=== PATIENT | male | born 1970 | race Caucasian/White ===

== ENCOUNTER 2017-02-11 13:43 | Emergency (ER) | payer OTHER ==
[~2017-02-11] VITALS: Ht 172.7 cm; Wt 85.0 kg
[2017-02-11 13:51] VITALS: TEMP 36.8; Ht 172.7 cm; Wt 85.0 kg
[2017-02-11] MEDS ORDERED: MoRPHine SULFATE 10 MG/ML CARP/VIAL IV STA (14:05)
[2017-02-11] MEDS ORDERED: CEFAZOLIN IV 1,000 MG in DEXTROSE 5% 50ML 50 ML IV STA (14:05)
[2017-02-11] MEDS ORDERED: BUPIVACAINE 0.5 % 5 MG/1 ML MPF 30ML VIAL INFIL STA (14:19)
[2017-02-11] MEDS ORDERED: XYLOCAINE 1%/SOD BICARB 20 ML VIAL INFIL STA (14:19)
[2017-02-11] MEDS ORDERED: DIPHTHERIA/TETANUS/PERTUSSIS 0.5 ML SYR/VIAL IM. ONE (14:30)
[2017-02-11] MEDS ORDERED: TETANUS IMMUNE GLOBULIN (HUMAN) 250 UNITS/ML SYR IM. ONE (14:30)
[2017-02-11 14:35] LABS: BASO % 0.4 %; BASO ABS # 0.03 K/uL (0-0.2); COMPLETE YES; EOS % 3.1 %; IG% 0.3 %; LYMPH % 22.9 %; LYMPH ABS # 1.79 K/uL (1.2-3.4); MEAN CELL VOLUME 87.6 fL (80-100); MEAN CORPUSCULAR HEMOGLOBIN 31.2 pg (25-34); MEAN CORPUSCULAR HGB CONC 35.6 g/dl (32-36); MEAN PLATELET VOLUME 11.2 fL (7.4-10.4); NEUT % 66.3 %; PLATELET COUNT 210 K/uL (130-400); RED BLOOD COUNT 4.91 M/uL (4.7-6.1); WHITE BLOOD COUNT 7.83 K/uL (4.8-10.8)
--- NOTE | 2017-02-11 14:55 | DIAGNOSTIC IMAGING REPORT ---
LEFT THUMB 3 VIEWS HISTORY: Left thumb foreign body COMPARISON: None. FINDINGS: There is a 3 cm metallic nail through the distal phalanx resulting in a fracture of the distal tuft of the left thumb. The fracture is slightly displaced. There is soft tissue swelling. No dislocation. IMPRESSION: There is a 3 cm metallic nail through the distal phalanx of the left thumb resulting in a fracture of the distal tuft. Electronically signed by: Irwin Carrasco M.D. 02/11/2017 2:54 PM Dictated Date/Time: 02/11/2017 2:52 PM
[2017-02-11 14:57] LABS: CALCIUM 9.1 mg/dl (8.5-10.1); CREATININE 1.1 mg/dl (0.60-1.40); POTASSIUM 3.7 mmol/L (3.5-5.1)
--- NOTE | 2017-02-11 16:58 | DIAGNOSTIC IMAGING REPORT ---
LEFT THUMB RADIOGRAPHS CLINICAL HISTORY: Left first digit pain. Post foreign object removal. COMPARISON: Left thumb radiographs at February 11, 2017 2:31 PM. FINDINGS: The metallic foreign body within the distal phalanx of the left thumb shown on prior exam has been removed. A nondisplaced fracture of the distal phalanx is again noted. No additional fractures are identified. IMPRESSION: 1. Interval removal of the metallic foreign body within the distal phalanx of the left thumb since prior exam. 2. Redemonstration of a nondisplaced fracture of the distal phalanx of the left thumb. Electronically signed by: Miky Villaseñor M.D. 02/11/2017 4:57 PM Dictated Date/Time: 02/11/2017 4:54 PM
[2017-02-11] MEDS ORDERED: OXYC1TAB3 PO (17:20)
[2017-02-11] MEDS ORDERED: CEPH-571 PO (17:20)
--- NOTE | 2017-02-11 17:25 | EMERGENCY ROOM VISIT NOTE ---
ED Visit Note First contact with patient: 14:01 Chief Complaint: "Nail through [id number]". History of Present Illness: This patient is a 46-year-old male who presents to the Emergency Department via private vehicle for evaluation of their left thumb puncture wound with nail. Patient sustained the foreign body while operating a nail gun just prior to arrival. This had occurred at 1 PM.. They report no decreased range of motion of the affected digit. He has not taken anything for the pain thus far. Patient rates his current discomfort as a 5/10, but quickly changes to a 10/10. Patient's Tetanus status is not currently up-to-date. Medications: None Allergies: None PMH: No pertinent identified SHx: Patient is currently employed. ROS: All pertinent positive and negative review of systems are appropriately documented in the History of Present Illness. Physical Exam: VITAL SIGNS - Vital signs and nursing notes were reviewed. He is hypertensive at which I believe is secondary to his pain. GENERAL -46-year-old male appearing his stated age who is in no acute distress. Communicates well with provider and answers questions appropriately. SKIN - There is a nail through the distal aspect of the left thumb. Minimal bleeding noted. MUSCULOSKELETAL -foreign body as described above. +5/5 strength appreciated of the affected digit. Full range of motion of the affected digit. NEUROLOGIC - he is able to appreciate sensation of pain in the distal tip. VASCULAR - Capillary refill was brisk. IMAGING: LEFT THUMB 3 VIEWS HISTORY: Left thumb foreign body COMPARISON: None. FINDINGS: There is a 3 cm metallic nail through the distal phalanx resulting in a fracture of the distal tuft of the left thumb. The fracture is slightly displaced. There is soft tissue swelling. No dislocation. IMPRESSION: There is a 3 cm metallic nail through the distal phalanx of the left thumb resulting in a fracture of the distal tuft. Electronically signed by: Irwin Carrasco M.D. 02/11/2017 2:54 PM Dictated Date/Time: 02/11/2017 2:52 PM LEFT THUMB RADIOGRAPHS CLINICAL HISTORY: Left first digit pain. Post foreign object removal. COMPARISON: Left thumb radiographs at February 11, 2017 2:31 PM. FINDINGS: The metallic foreign body within the distal phalanx of the left thumb shown on prior exam has been removed. A nondisplaced fracture of the distal phalanx is again noted. No additional fractures are identified. IMPRESSION: 1. Interval removal of the metallic foreign body within the distal phalanx of the left thumb since prior exam. 2. Redemonstration of a nondisplaced fracture of the distal phalanx of the left thumb. Electronically signed by: Miky Villaseñor M.D. 02/11/2017 4:57 PM Dictated Date/Time: 02/11/2017 4:54 PM ED Course: Patient was seen and evaluated by myself. Risks and benefits of performing primary wound closure versus no repair were discussed with the patient who verbalizes understanding. Verbal consent was obtained prior to performing the procedure. 8 cc of 1% buffered lidocaine and 0.5% bupivacaine and a 50 /50 ratio was administered via digital block. Was used to perform a digital block of the left first digit. The wound was cleansed and prepped in the typical sterile fashion utilizing normal saline and Betadine. The wound was sterilely draped. Once proper anesthetization was established, consent was obtained and I temperature of the nail. The nail did not move. I then acquired the sterile operating tray for orthopedics, and was able to safely remove the nail with a pair of pliers. There is a small retained markie from the nail which was also removed. Post foreign body extraction radiograph was obtained and revealed a fracture without evidence of retained foreign body. Upon initial presentation, the patient was given morphine for his pain, and blood work was also obtained. He was given Ancef, 1 g for infection prophylaxis and will be discharged home on Keflex. He also be discharged home on oxycodone. The case was discussed with the on-call surgeon, prior to removing the nail. He does have an open fracture. Because he had never gone through the tetanus series, I did discuss the case with the in-house pharmacist and the decision was made to provide the patient with the Hyper-Tet and tetanus vaccination of which he is to have repeat with family doctor in 4 weeks. The wound was copiously irrigated with normal saline and Betadine. Patient tolerated the procedure well. No complications were met. The wound was cleansed and dressed with a xeroform dressing. A metal splint was applied to the finger for comfort. Post foreign body removal radiographs were obtained to verify complete removal of the foreign body. Successful removal of the nail. Patient received their Adacel , hypertet vaccination. Patient educated on worrisome symptoms for return visit to the Emergency Department. Patient discharged to home in good condition. He is to also follow-up with his family doctor in the local region for blood pressure monitoring. He states that he did have a problem in the past with high blood pressure. He notes that he himself feels comfortable making the arrangements to see a family doctor. He is to follow-up with orthopedic surgeon regarding today's injury. Phone number was provided of which he is to call to schedule follow-up. In the treatment of this patient controlled medication was utilized and therefore the [facility], Prescription Drug Monitoring Program website was utilized to look up this patient. No concerns were identified that would prohibit or alter my treatment decision. In the evaluation and treatment of this patient, the following differential diagnoses were considered: Finger Fracture, Finger Dislocation, Finger Sprain, Finger Contusion, Jersey Finger, or Mallet Finger. Current/Historical Medications Scheduled Cephalexin (Keflex), 1 CAP PO TID Scheduled PRN Oxycodone Ir (Roxicodone Ir), 1-2 TAB PO Q4H PRN for Pain Allergies Coded Allergies: No Known Allergies (Unverified , 02/11/17) Vital Signs Date Time Temp Pulse Resp B/P (MAP) Pulse Ox O2 Delivery O2 Flow Rate FiO2 02/11/17 18:11 80 20 178/113 98 02/11/17 16:32 67 20 164/108 96 Room Air 02/11/17 14:56 91 16 164/99 99 Room Air 02/11/17 13:51 36.8 95 18 180/106 98 Room Air Laboratory Results 02/11/17 14:15 Red Blood Count 4.91, Mean Corpuscular Volume 87.6, Mean Corpuscular Hemoglobin 31.2, Mean Corpuscular Hemoglobin Concent 35.6, Mean Platelet Volume 11.2, Neutrophils (%) (Auto) 66.3, Lymphocytes (%) (Auto) 22.9, Monocytes (%) (Auto) 7.0, Eosinophils (%) (Auto) 3.1, Basophils (%) (Auto) 0.4, Neutrophils # (Auto) 5.20, Lymphocytes # (Auto) 1.79, Monocytes # (Auto) 0.55, Eosinophils # (Auto) 0.24, Basophils # (Auto) 0.03 02/11/17 14:15 Test 02/11/17 14:15 White Blood Count 7.83 K/uL (4.8-10.8) Red Blood Count 4.91 M/uL (4.7-6.1) Hemoglobin 15.3 g/dL (14.0-18.0) Hematocrit 43.0 % (42-52) Mean Corpuscular Volume 87.6 fL (80-100) Mean Corpuscular Hemoglobin 31.2 pg (25-34) Mean Corpuscular Hemoglobin Concent 35.6 g/dl (32-36) Platelet Count 210 K/uL (130-400) Mean Platelet Volume 11.2 fL (7.4-10.4) Neutrophils (%) (Auto) 66.3 % Lymphocytes (%) (Auto) 22.9 % Monocytes (%) (Auto) 7.0 % Eosinophils (%) (Auto) 3.1 % Basophils (%) (Auto) 0.4 % Neutrophils # (Auto) 5.20 K/uL (1.4-6.5) Lymphocytes # (Auto) 1.79 K/uL (1.2-3.4) Monocytes # (Auto) 0.55 K/uL (0.11-0.59) Eosinophils # (Auto) 0.24 K/uL (0-0.5) Basophils # (Auto) 0.03 K/uL (0-0.2) RDW Standard Deviation 42.1 fL (36.4-46.3) RDW Coefficient of Variation 13.0 % (11.5-14.5) Immature Granulocyte % (Auto) 0.3 % Immature Granulocyte # (Auto) 0.02 K/uL (0.00-0.02) Anion Gap 6.0 mmol/L (3-11) Est Creatinine Clear Calc Drug Dose 89.0 ml/min Estimated GFR () 92.8 Estimated GFR (Non- 80.1 BUN/Creatinine Ratio 17.0 (10-20) Calcium Level 9.1 mg/dl (8.5-10.1) Medications Administered Medications (Trade) Dose Ordered Sig/Frank Route Start Time Stop Time Status Last Admin Dose Admin Morphine Sulfate (MoRPHine SULFATE INJ) 6 mg NOW STAT IV 02/11/17 14:05 02/11/17 14:08 DC 02/11/17 14:24 6 MG Cefazolin Sodium 1000 mg/Dextrose 55 ml @ 100 mls/hr NOW STAT IV 02/11/17 14:05 02/11/17 14:37 DC 02/11/17 14:23 100 MLS/HR Tetanus Immune Globulin (Hypertet Inj) 250 units ONCE ONCE IM. 02/11/17 14:30 02/11/17 14:31 DC 02/11/17 14:55 250 UNITS Diphtheria/ Pertussis/Tetanus Vacc (Adacel Inj) 0.5 ml ONCE ONCE IM. 02/11/17 14:30 02/11/17 14:31 DC 02/11/17 14:29 0.5 ML Departure Information Impression Primary Impression: Nail entering through skin, initial encounter Additional Impression: Open fracture of thumb Dispostion Home / Self-Care Condition GOOD Prescriptions Oxycodone Ir (Roxicodone Ir) 5 Mg Tab 1-2 TAB PO Q4H Y for Pain, #21 TAB For Initial Treatment Prov: Vernon Parr PA-C 02/11/17 Cephalexin (KEFLEX) 500 Mg Cap 1 CAP PO TID for 7 Days, #21 CAP Prov: Vernon Parr PA-C 02/11/17 Referrals No Doctor, Assigned (PCP) Magdiel Gallagher, DO Patient Instructions My [facility] Additional Instructions Discharge Instructions: You were seen in the emergency Department for a nail through your thumb. You've been prescribed Keflex. This is an antibiotic to help prevent infection. This is one tablet every 8 hours for 7 days. You've been prescribed OxyIR. This is the pain medication. Please no driving or operating machinery on the influence of this medication. Because there is a fracture/broken bone. It is recommended he follow-up with orthopedics. Number has been provided. Please call them first thing Tuesday morning. Please wear the splint for comfort until he follow up with orthopedics. There is a fracture/broken bone within your thumb. Proper wound care is essential for adequate wound healing and infection prevention. You can shower and clean the wound with soap and water. Do not scour over the wound, pat dry with a towel. Do not submerse the wound (i.e. bathe or dish wash) for 1 week. You can use an antibiotic ointment with a dressing over the wound for the next 3-4 days. After this time you may leave the wound dry and open to the air. If crust develops over the wound you can use a Q-tip to apply a 1:1 peroxide:water solution to clean the wound. Look for signs of infection of the wound including: increased pain, swelling, foul discharge, streaking, or increased temperature. If any of these are noticed you should return to the Emergency Department for further assessment and treatment. As with any laceration you may have received nerve damage to the surrounding tissues. This damage may or may not be permanent. You should keep the area covered with sunscreen for the first 6 months to 1 year when at risk for exposure to help minimize scarring. You can also use scar reducing creams or Vitamin E oil to help minimize scarring. For pain control, you can use the following [id number] medicines (if >12 yo): - Regular strength (325mg/tab) Tylenol (acetaminophen) 2 tabs every 4-6 hours as needed. Do not exceed 12 tablets in a 24 hour period. Avoid taking more than 3 grams (3000 mg) of Tylenol per day. This includes any other sources of acetaminophen you may take on a regular basis. - Regular strength (200 mg/tab) Advil (ibuprofen) 1-2 tabs every 4-6 hours as needed. Do not exceed a dose of 3200 mg per day. Return to the emergency department if your symptoms worsen despite treatment course outlined above. Problem Qualifiers
[2017-02-11 18:11] VITALS: BP 178/113; PULSE 80; O2SAT 98
== END 2017-02-11 18:45 | disposition home or self-care (01) ==
LOC: C.EDB 13:46 → C.EDD 18:45
DX: S61.042A Puncture wound with foreign body of left thumb without damage to nail, initial encounter (principal); S62.525A Nondisplaced fracture of distal phalanx of left thumb, initial encounter for closed fracture; W29.4XXA Contact with nail gun, initial encounter; Y92.89 Other specified places as the place of occurrence of the external cause; Y99.0 Civilian activity done for income or pay